=== PATIENT | female | born 1940 | race Caucasian/White ===

== ENCOUNTER 2024-08-12 16:56 | Emergency (ER) | payer OTHER ==
[~2024-08-12] VITALS: Ht 165.1 cm; Wt 86.0 kg
[2024-08-12 17:12] VITALS: BP 107/43; PULSE 67; RESP 16; TEMP 98.3; O2SAT 97
--- NOTE | 2024-08-12 17:22 | ED.PDOC ---
Musculoskeletal HPI Comments 83 y/o F, BIBA, with PMHx of HTN and HLD presents to the ED for CC of s/p fall. EMS reports, patient is coming from home where she suffered a ground level fall on concrete today (08/12/24) caused by a dog sweeping her. Patient complains of current left hip pain that radiates to her right side. Patient denies head injur y, LOC, abrasions, or lacerations. No other symptoms or modifying factors present at this time. Chief Complaint: Lower Extremity Time Seen by MD: 17:00 Primary Care Provider: UNKNOWN Reviewed Notes: Nurses Notes, Medications, Allergies Allergies: Coded Allergies: Penicillins (Verified Allergy, Severe, 08/12/24) Tetanus Toxoids (Verified Allergy, Severe, 08/12/24) Information Source: Patient, Emergency Med Personnel Mode of Arrival: EMS Location: Left Extremity Location: Hip Timing: Minutes Prehospital treatment: None Severity: Moderate Able to Move Extremity: No Bear Weight: No Pain: Moderate Mechanism: Other (FALL) Circumstances: Fall Onset of Symptoms: After Trauma Symptoms: Pain Associated signs and symptoms: Hip pain Past Medical History PAST MEDICAL HISTORY: High Lipids, HTN Surgical History: Cholecystectomy, Tonsillectomy TECHNICAL AID History: Unknown Family History Family History: Unknown Social History Smoker: Non-Smoker Alcohol: Denies ETOH Use Drugs: Denies Drug Use Lives In: Home Constitutional: denies: chills, diaphoresis, fatigue, fever, malaise, sweats, weakness, others EENTM: denies: blurred vision, double vision, ear bleeding, ear discharge, ear drainage, ear pain, ear ringing, eye pain, eye redness, hearing loss, mouth pain, mouth swelling, nasal discharge, nose bleeding, nose congestion, nose pain, photophobia, tearing, throat pain, throat swelling, voice changes, others Respiratory: denies: cough, hemoptysis, orthopnea, SOB at rest, shortness of breath, SOB with excertion, stridor, wheezing, others Cardiovascular: denies: chest pain, dizzy spells, diaphoresis, Dyspnea on exertion, edema, irregular heart beat, left arm pain, lightheadedness, palpitations, PND, syncope, others Gastrointestinal: denies: abdomen distended, abdominal pain, blood streaked bowels, constipated, diarrhea, dysphagia, difficulty swallowing, hematemesis, melena, nausea, poor appetite, poor fluid intake, rectal bleeding, rectal pain, vomiting, others Genitourinary: denies: abnormal vagina bleeding, burning, dyspareunia, dysuria, flank pain, frequency, hematuria, incontinence, pain, , vagina discharge, urgency, others Neurological: denies: dizziness, fainting, headache, left sided numbness, left sided weakness, numbness, paresthesia, pre-existing deficit, right sided numbness, right sided weakness, seizure, speech problems, tingling, tremors, weakness, others Musculoskeletal: reports: others (LEFT HIP PAIN); denies: back pain, gout, joint pain, joint swelling, muscle pain, muscle stiffness, neck pain Integumetry: denies: bruises, change in color, change in hair/nails, dryness, laceration, lesions, lumps, rash, wounds, others Allergic/Immunocompromised: denies: Difficulty Healing, Frequent Infections, Hives, Itching, others Hematologic/Lymphatic: denies: anemia, blood clots, easy bleeding, easy bruising, swollen glands, others Endocrine: denies: excessive hunger, excessive sweating, excessive thirst, excessive urination, flushing, intolerance to cold, intolerance to heat, unexplained weight gain, unexplained weight loss, others Psychiatric: denies: anxiety, bipolar disorder, depression, hopeless, panic disorder, schizophrenia, sleepless, suicidal, others All Other Systems: Reviewed and Negative Physical Exam General Appearance: Mild Distress, Obese HEENT: Normal ENT Inspection, Pharynx Normal, TMs Normal Neck: Full Range of Motion, Non-Tender, Normal, Normal Inspection Respiratory: Chest Non-Tender, Lungs Clear, No Accessory Muscle Use, No Respiratory Distress, Normal Breath Sounds Cardiovascular: No Edema, No JVD, No Murmur, No Gallop, Normal Peripheral Pulses, Regular Rate/Rhythm Breast Exam: Deferred Gastrointestinal: No Organomegaly, Non Tender, No Pulsatile Mass, Normal Bowel Sounds, Soft Genitalia: Deferred Pelvic: Deferred Rectal: Deferred Extremities: No calf tenderness, Normal capillary refill, No pedal edema Musculoskeletal : Location: Left Extremity Location: Hip Apperance: Limited ROM, Tenderness: Moderate Neurologic: Alert, 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 Was a procedure done?: No Differential Diagnosis EXT Differential Diagnosis: Fracture, Sprain, Dislocation, Strain X-Ray, Labs, Meds, VS Vital Signs Date Time Temp Pulse Resp B/P (MAP) Pulse Ox O2 Delivery O2 Flow Rate FiO2 08/12/24 17:12 98.3 67 16 107/43 (64) 97 98.3 08/12/24 17:04 98.5 67 16 107/63 (78) 97 98.5 Lab Test 08/12/24 17:13 Range/Units White Blood Count 5.0 4.4-10.8 10^3/uL Red Blood Count 4.37 4.0-5.20 10^6/uL Hemoglobin 13.2 12.2-16.2 g/dL Hematocrit 38.9 36.0-46.0 % Mean Corpuscular Volume 88.9 80.0-100.0 fL Mean Corpuscular Hemoglobin 30.1 28.0-32.0 pg Mean Corpuscular Hemoglobin Concent 33.9 32.0-36.0 g/dL Red Cell Distribution Width 13.6 11.8-14.3 % Platelet Count 237 140-450 10^3/uL Mean Platelet Volume 7.7 6.9-10.8 fL Neutrophils (%) (Auto) 58.7 37.0-80.0 % Lymphocytes (%) (Auto) 27.7 10.0-50.0 % Monocytes (%) (Auto) 11.7 0.0-12.0 % Eosinophils (%) (Auto) 0.8 0.0-7.0 % Basophils (%) (Auto) 1.1 0.0-2.0 % Neutrophils # (Auto) 2.9 1.6-8.6 10 ^3/uL Lymphocytes # (Auto) 1.4 0.4-5.4 10 ^3/uL Monocytes # (Auto) 0.6 0-1.3 10 ^3/uL Eosinophils # (Auto) 0 0-0.8 10 ^3/uL Basophils # (Auto) 0.1 0-0.2 10 ^3/uL Nucleated Red Blood Cells 0.1 % Prothrombin Time 12.6 H 9.3-11.8 sec Prothrombin Time INR 1.21 H 0.9-1.15 Activated Partial Thromboplast Time 42.2 H 24.5-34.5 SEC Sodium Level 136 136-145 mmol/L Potassium Level 4.4 3.5-5.1 mmol/L Chloride Level 102 98-107 mmol/L Carbon Dioxide Level 27 20-31 mmol/L Anion Gap 7 5-15 Blood Urea Nitrogen 21 9-23 mg/dL Creatinine 0.96 0.550-1.02 mg/dL Glomerular Filtration Rate Calc 59 >90 mL/min BUN/Creatinine Ratio 21.9 H 10.0-20.0 Serum Glucose 96 74-106 mg/dL Calcium Level 9.4 8.7-10.4 mg/dL LEFT HIP XR: Impression: Bones are osteopenic with degenerative changes involving the greater trochanters I do not see a definite fracture involving the left hip but I would recommend CT examination for further assessment We did do a CAT scan of the pelvis and it shows: IMPRESSION: No displaced fractures or subluxations identified. If there is persistent clinical concern, MRI may be considered to evaluate for occult injury. The patient's CBC and chemistry panel are within normal limits The INR is 1.21 The patient states that she was moving somewhat better The CAT scan of the pelvis shows no sign of any fracture The patient was now moving much better The patient was being discharged The patient was given acetaminophen 650 mg by mouth. We did explain to the patient that if the pain is persistent the next step would be an MRI The patient was discharged Images Reviewed?: Images reviewed and evaluated by me Time of 1ST Reevaluation: 17:30 Reevaluation 1ST: Unchanged Time of 2ND Reevaluation: 20:20 Reevaluation 2ND: Improved Patient Education/Counseling: Diagnosis, Treatment, Prognosis, Need For Follow Up Family Education/Counseling: Diagnosis, Treatment, Prognosis, Need For Follow Up, No Family Present Departure 1 Departure Time of Disposition: 20:14 Impression: Primary Impression: Contusion of left hip Qualified Codes: S70.02XA - Contusion of left hip, initial encounter Disposition: 01 HOME / SELF CARE / HOMELESS Condition: Fair (No known denies go) Discharged With: Self Critical Care Note Critical Care Time?: No Stability Stability form required: No Heart Score Heart Score: Heart Score Response (Comments) Value History N/A 0 EKG N/A 0 Age N/A 0 Risk Factors N/A 0 Troponin N/A 0 Total 0 I personally scribed for TAYO MALCOLM MD ([email or web address]) on 08/12/24 at 17:22. Electronically submitted by Carmen Varner ([email or web address]). I personally scribed for TAYO MALCOLM MD ([email or web address]) on 08/12/24 at 19:58. Electronically submitted by Carmen Varner ([email or web address]). TAYO MALCOLM MD Aug 12, 2024 17:22
[2024-08-12 17:30] LABS: Basophils # (auto) 0.1 10 ^3/uL (0-0.2); Basophils % (auto) 1.1 % (0.0-2.0); Eosinophils # (auto) 0 10 ^3/uL (0-0.8); Eosinophils % (auto) 0.8 % (0.0-7.0); Hematocrit 38.9 % (36.0-46.0); Hemoglobin 13.2 g/dL (12.2-16.2); Lymphocytes # (auto) 1.4 10 ^3/uL (0.4-5.4); Lymphocytes % (auto) 27.7 % (10.0-50.0); Mean Corpuscular Hemoglobin 30.1 pg (28.0-32.0); Mean Corpuscular Hgb Conc. 33.9 g/dL (32.0-36.0); Mean Corpuscular Volume 88.9 fL (80.0-100.0); Monocytes # (auto) 0.6 10 ^3/uL (0-1.3); Monocytes % (auto) 11.7 % (0.0-12.0); Neutrophils # (auto) 2.9 10 ^3/uL (1.6-8.6); Neutrophils % (auto) 58.7 % (37.0-80.0); Nucleated Red Blood Cells % 0.1 %; Platelet Count (auto) 237 10^3/uL (140-450); Red Blood Cells 4.37 10^6/uL (4.0-5.20); Red Cell Distribution Width 13.6 % (11.8-14.3)
[2024-08-12 17:34] LABS: Chloride 102 mmol/L (98-107); Potassium 4.4 mmol/L (3.5-5.1); Sodium 136 mmol/L (136-145)
[2024-08-12 17:35] LABS: Anion Gap 7 (5-15); Carbon Dioxide 27 mmol/L (20-31)
[2024-08-12 17:36] LABS: Calcium 9.4 mg/dL (8.7-10.4)
[2024-08-12 17:40] LABS: Glucose 96 mg/dL (74-106)
[2024-08-12 17:41] LABS: BUN/Creatinine Ratio 21.9 (10.0-20.0); Blood Urea Nitrogen 21 mg/dL (9-23)
[2024-08-12 17:46] LABS: INR 1.21 (0.9-1.15); Partial Thromboplastin Time 42.2 SEC (24.5-34.5); Prothrombin Time 12.6 sec (9.3-11.8)
--- NOTE | 2024-08-12 18:59 | DVH ---
XY L HIP COMPLETE XRAY, August 12, 2024 INDICATION: fall TECHNICAL DATA: Frontal and frog lateral views were obtained of the left hip.] COMPARISON: Images of the right hip FINDINGS: there is bilateral calcifications in the superficial femoral arteries. There is bilateral enthesopathy involving the greater trochanters less on the left side in the right side I do not see any evidence for fracture. However I would recommend a follow-up CT examination fur ther assessment. Impression: Bones are osteopenic with degenerative changes involving the greater trochanters I do not see a definite fracture involving the left hip but I would recommend CT examination for further asse ssment
--- NOTE | 2024-08-12 20:11 | DVH ---
CT SCAN PELVIS WITH CONTRAST CLINICAL HISTORY: fall TECHNIQUE: Helical images are obtained through the pelvis with the administration of intravenous con trast. Multiplanar reformats. One or more of the following radiation dose reduction techniques were u sed for this examination: automated exposure control, adjustment of the mA and/or kV according to pat ient size, use of iterative reconstruction technique. COMPARISON: Left hip radiographs obtained earlier the same day. FINDINGS: No grossly displaced fractures or dislocations are evident. Mild arthritic changes of the bilateral h ips. Bilateral greater trochanter enthesopathy. Degenerative changes of the imaged lumbar spine. Aortoiliac atherosclerotic calcifications. Fat containing left inguinal hernia. No free air or fluid identified within the imaged lower abdomen and pelvis. No sizable bladder calculus. IMPRESSION: No displaced fractures or subluxations identified. If there is persistent clinical concern, MRI may b e considered to evaluate for occult injury. Other ancillary findings as above.
[2024-08-12] MEDS: ACETAMINOPHEN 325 MG TAB PO ONE (20:46)
== END 2024-08-12 20:52 | disposition home or self-care (01) ==
LOC: EDBD 16:56 → ER 16:56
DX: S70.02XA Contusion of left hip, initial encounter (principal); E78.5 Hyperlipidemia, unspecified; I10 Essential (primary) hypertension; Z90.49 Acquired absence of other specified parts of digestive tract; Z90.89 Acquired absence of other organs; Z88.0 Allergy status to penicillin; Z88.7 Allergy status to serum and vaccine; W18.30XA Fall on same level, unspecified, initial encounter; Y93.89 Activity, other specified; Y92.89 Other specified places as the place of occurrence of the external cause; Y99.8 Other external cause status
CPT/HCPCS: 36415; 72192; 73502; 80048; 85025; 85610; 85730

== ENCOUNTER 2024-12-17 13:59 | Emergency (ER) | payer OTHER ==
[~2024-12-17] VITALS: Ht 175.3 cm; Wt 90.0 kg
[2024-12-17 15:08] LABS: Hematocrit 38.7 % (36.0-46.0); Hemoglobin 13.4 g/dL (12.2-16.2); Mean Corpuscular Hemoglobin 30.6 pg (28.0-32.0); Mean Corpuscular Volume 88.4 fL (80.0-100.0)
[2024-12-17 15:23] LABS: Chloride 104 mmol/L (98-107); Sodium 140 mmol/L (136-145)
[2024-12-17 15:24] LABS: Anion Gap 7 (5-15); Calcium 8.9 mg/dL (8.7-10.4); Carbon Dioxide 29 mmol/L (20-31)
[2024-12-17 15:25] LABS: Potassium 3.1 mmol/L (3.5-5.1)
[2024-12-17 15:29] LABS: BUN/Creatinine Ratio 9.1 (10.0-20.0); Total Cells Counted 100.0 (100)
[2024-12-17 15:36] LABS: Blood Urea Nitrogen 7 mg/dL (9-23); Glucose 132 mg/dL (74-106)
--- NOTE | 2024-12-17 16:08 | ED.PDOC ---
History of Present Illness HPI Comments 84 y/o F, with a history of HLD and HTN, presents with c/c of 2 hours history of bilateral leg swelling and dizziness. Patient denies having any chest pain, shortness of breath, headache, weakness, or further associated symptoms. Chief Complaint: Dizziness Time Seen by MD: 14:30 Primary Care Provider: UNKNOWN Reviewed Notes: Nurses Notes, Medications, Allergies Allergies: Coded Allergies: Penicillins (Verified Allergy, Severe, 08/12/24) Tetanus Toxoids (Verified Allergy, Severe, 08/12/24) Information Source: Patient Mode of Arrival: Wheelchair Severity: Moderate Timing: Hours Duration: Since onset Prehospital treatment: None Past Medical History PAST MEDICAL HISTORY: High Lipids, HTN Surgical History: Cholecystectomy, Tonsillectomy [employer] History: Unknown Family History Family History: Unknown Social History Smoker: Non-Smoker Alcohol: Denies ETOH Use Drugs: Denies Drug Use Lives In: Home All Other Systems: Reviewed and Negative (Comprehensive systems review obtained and negative except for what is stated in the HPI.) Physical Exam General Appearance: Moderate Distress HEENT: Normal ENT Inspection, Pharynx Normal, TMs Normal Neck: Full Range of Motion, Non-Tender, Normal, Normal Inspection Respiratory: Chest Non-Tender, Lungs Clear, No Accessory Muscle Use, No Respiratory Distress, Normal Breath Sounds Cardiovascular: No Edema, No JVD, No Murmur, No Gallop, Normal Peripheral Pulses, Regular Rate/Rhythm Breast Exam: Deferred Gastrointestinal: No Organomegaly, Non Tender, No Pulsatile Mass, Normal Bowel Sounds, Soft Genitalia: Deferred Pelvic: Deferred Rectal: Deferred Extremities: Other (Lymphangitis) Musculoskeletal : Apperance: Normal Neurologic: Alert, 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 Was a procedure done?: No Differential Dx Considerations may include: heart failure, fluid retention, dehydration, cellulitis, dermatitis, CVA, TIA, vertigo, among others X-Ray, Labs, Meds, VS Vital Signs Date Time Temp Pulse Resp B/P (MAP) Pulse Ox O2 Delivery O2 Flow Rate FiO2 12/17/24 14:06 64 12/17/24 14:04 98.2 62 20 149/71 96 98.2 Lab Test 12/17/24 14:58 Range/Units White Blood Count 4.0 L 4.4-10.8 10^3/uL Red Blood Count 4.38 4.0-5.20 10^6/uL Hemoglobin 13.4 12.2-16.2 g/dL Hematocrit 38.7 36.0-46.0 % Mean Corpuscular Volume 88.4 80.0-100.0 fL Mean Corpuscular Hemoglobin 30.6 28.0-32.0 pg Mean Corpuscular Hemoglobin Concent 34.7 32.0-36.0 g/dL Red Cell Distribution Width 13.7 11.8-14.3 % Platelet Count 233 140-450 10^3/uL Mean Platelet Volume 7.6 6.9-10.8 fL Neutrophils (%) (Auto) 37.0-80.0 % Lymphocytes (%) (Auto) 10.0-50.0 % Monocytes (%) (Auto) 0.0-12.0 % Eosinophils (%) (Auto) 0.0-7.0 % Basophils (%) (Auto) 0.0-2.0 % Neutrophils # (Auto) 1.6-8.6 10 ^3/uL Lymphocytes # (Auto) 0.4-5.4 10 ^3/uL Monocytes # (Auto) 0-1.3 10 ^3/uL Eosinophils # (Auto) 0-0.8 10 ^3/uL Basophils # (Auto) 0-0.2 10 ^3/uL Differential Total Cells Counted 100.0 100 Neutrophils % (Manual) 61 37.0-80.0 Band Neutrophils % (Manual) 0 Lymphocytes % (Manual) 25 10.0-50.0 Monocytes % (Manual) 13 H 0-12 Eosinophils % (Manual) 1 0-7 Basophils % (Manual) 0 0.0-2.0 Metamyelocytes % (manual) 0 Myelocytes % (Manual) 0 Promyelocytes % (Manual) 0 Blast Cells % (Manual) 0 Nucleated Red Blood Cells % Reactive Lymphocytes 0 Platelet Estimate Adequate Sodium Level 140 136-145 mmol/L Potassium Level 3.1 L 3.5-5.1 mmol/L Chloride Level 104 98-107 mmol/L Carbon Dioxide Level 29 20-31 mmol/L Anion Gap 7 5-15 Blood Urea Nitrogen 7 L 9-23 mg/dL Creatinine 0.77 0.550-1.02 mg/dL Glomerular Filtration Rate Calc 77 >90 mL/min BUN/Creatinine Ratio 9.1 L 10.0-20.0 Serum Glucose 132 H 74-106 mg/dL Calcium Level 8.9 8.7-10.4 mg/dL Troponin I High Sensitivity 23 </=34 ng/L Patient alert. Complaining of generalized symptoms pain Denies headache. Vitals stable. Denies falls. Neurological examination intact. Pristine physical examination. Potassium is low. Was given potassium. She does have lymphangitis. Chronic symptoms. No head injury. EKG reviewed does not show any acute changes. Cardiac marker within normal limits. Heart rate within normal limits. Saturation pristine on room air. No calf tenderness. Lymphangitis. Explained to the patient. Was told to follow up with her primary care physician. Was told to come back if there is any problem. Time of 1ST Reevaluation: 15:00 Reevaluation 1ST: Unchanged Patient Education/Counseling: Diagnosis, Treatment Family Education/Counseling: No Family Present SEPSIS Sepsis Screen Date sepsis recognized/suspect: Dec 17, 2024 Time Sepsis recognized/suspect: 1404 Recent Procedure: No On Antibiotic Therapy: No Respiratory Rate >20: No Heart Rate >90: No Temp<36 C (96.8 F) or >38.3 C: No SBP <90 or MAP <65 mmHG: No New Acute Mental Status Change: No Is the patient on CPAP, BIPAP,: No Physician Orders Electrocardigram (12/17/24 14:20) Urinalysis (12/17/24 14:48) Vital Signs Date Time Temp Pulse Resp B/P (MAP) Pulse Ox O2 Delivery O2 Flow Rate FiO2 12/17/24 14:06 64 12/17/24 14:04 98.2 62 20 149/71 96 98.2 Laboratory Tests Test 12/17/24 14:58 White Blood Count 4.0 10^3/uL (4.4-10.8) L Departure 1 Departure Time of Disposition: 16:12 Impression: Primary Impression: Autonomic disorder Additional Impressions: Musculoskeletal pain Hypokalemia Disposition: 01 HOME / SELF CARE / HOMELESS Condition: Good e-Prescriptions Meclizine HCl (Meclizine 25) 25 Mg Tab 25 MG PO DAILY for 5 Days, #5 TAB Prov: RANDALL ARRIAZA MD 12/17/24 Discharged With: Self Critical Care Note Critical Care Time?: No Stability Stability form required: No Heart Score Heart Score: Heart Score Response (Comments) Value History Slightly Suspicious 0 EKG Normal 0 Age >65 2 Risk Factors 1 or 2 risk factors 1 Troponin Normal limit 0 Total 3 I personally scribed for RANDALL ARRIAZA MD ([email or web address]) on 12/17/24 at 16:08. Electronically submitted by Mikhail Carpio ([email or web address]). RANDALL ARRIAZA MD Dec 17, 2024 16:08
[2024-12-17] MEDS ORDERED: MECL1TAB42 PO (16:14)
[2024-12-17 18:38] VITALS: BP 163/86; PULSE 67; RESP 16; TEMP 98; O2SAT 96
[2024-12-17] MEDS: POTASSIUM EFFERVESENT TAB 25 MEQ PO ONE (18:48)
--- NOTE | 2024-12-18 10:53 | ECG ---
[facility] Test Date: 2024-12-17 Test Time: 14:06:49 Pat Name: SIMÓN LEON Department: [facility] ED Patient ID: [id number] Room: Gender: F Category Planner: FRANNIE : 1940 Requested By: RANDALL ARRIAZA Order Number: [id number] Reading MD: Ken Givens Measurements Intervals [place] Rate: 64 P: -60 GA: 259 QRS: -71 QRSD: 165 T: -27 QT: 461 QTc: 476 Interpretive Statements Sinus or ectopic atrial rhythm Prolonged GA interval RBBB and LAFB Left ventricular hypertrophy Electronically Signed On 12-18-2024 13:11:52 PDT by eKn iGvens Please click the below link to view image of tracing.
== END 2024-12-17 18:57 | disposition home or self-care (01) ==
LOC: ER 13:59
DX: M79.18 Myalgia, other site (principal); E78.5 Hyperlipidemia, unspecified; E87.6 Hypokalemia; I10 Essential (primary) hypertension; Z90.49 Acquired absence of other specified parts of digestive tract; Z90.89 Acquired absence of other organs; Z88.0 Allergy status to penicillin; Z88.7 Allergy status to serum and vaccine
CPT/HCPCS: 36415; 80048; 84484; 85007; 85027; 93005